=== PATIENT | male | born 1960 | race Caucasian/White ===

== ENCOUNTER 2024-12-22 13:58 | Outpatient (CLI) | payer BC | END 2024-12-22 13:59 | disposition home or self-care (01) | LOC: BICRAD 13:58 | DX: M48.061 Spinal stenosis, lumbar region without neurogenic claudication (principal); M47.816 Spondylosis without myelopathy or radiculopathy, lumbar region | CPT/HCPCS: 72100 ==

== ENCOUNTER 2025-04-07 11:33 | Outpatient (CLI) | payer BC | END 2025-04-07 11:34 | disposition home or self-care (01) | LOC: BICRAD 11:33 | PROVIDERS: ATTEND Surgery | DX: M54.16 Radiculopathy, lumbar region (principal); M43.16 Spondylolisthesis, lumbar region; M41.9 Scoliosis, unspecified; Z98.1 Arthrodesis status | CPT/HCPCS: 72100 ==

== ENCOUNTER 2025-05-24 13:19 | Outpatient (CLI) | payer BC | END 2025-05-24 13:20 | disposition home or self-care (01) | LOC: BICCT 13:19 | PROVIDERS: ATTEND Surgery | DX: M47.816 Spondylosis without myelopathy or radiculopathy, lumbar region (principal); Z98.1 Arthrodesis status | CPT/HCPCS: 72131 ==